=== PATIENT | male | born 1980 ===

== ENCOUNTER 2019-09-28 23:15 | Inpatient (IN) ==
[2019-09-29] MEDS ORDERED: ALBUTEROL 2.5 MG/3 ML NEB RESP TX PRN (01:25)
[2019-09-29] MEDS ORDERED: GLUCAGON 1 MG VIAL IM PRN (01:25)
[2019-09-29] MEDS ORDERED: DEXTROSE 50% 25 GM/50 ML SYRINGE IV PRN (01:25)
[2019-09-29] MEDS ORDERED: ONDANSETRON 4 MG/2 ML VIAL IV PRN (01:25)
[2019-09-29] MEDS ORDERED: OSELTAMIVIR 30 MG CAPSULE PO SCH (02:00)
[2019-09-29 07:01] LABS: Albumin 2.8 G/DL (3.4-5.0); Bilirubin,Total 0.9 MG/DL (0.2-1.0); Calcium 8.4 MG/DL (8.5-10.1); Osmolality,Calculated 279.2 MOS/KG (273-304); Total Protein 7.2 G/DL (6.4-8.3)
[2019-09-29] MEDS: ACETAMINOPHEN 325 MG TABLET PO PRN ×2 (07:11→13:00)
[2019-09-29 07:44] LABS: Basophils # 0.1 10*3/uL (0.0-0.2); Basophils % 1.1 % (0.0-0.8); Hematocrit 31.8 VOL% (42.0-52.0); Immature Granulocytes % 0.4 %; Immature Granulocytes Absolute 0.03 #; Lymphocytes # 0.8 10*3/uL (1.4-4.0); Lymphocytes % 10.7 % (21.2-54.2); Mean Corpuscular HGB Conc 31.4 GM/DL (32-36); Mean Corpuscular Volume 104.6 FL (87-102); Mean Platelet Volume 12.4 FL (9.6-12.0); Monocytes % 15.3 % (1.7-12.7); Neutrophils % 72.5 % (38.7-73.9); Red Blood Count 3.04 MC/CUMM (3.8-5.5); Red Cell Distribution Width 15.3 % (9.3-17.3); White Blood Count 7.1 T/CUMM (4-12)
[2019-09-29 07:45] LABS: Platelet Count 58 T/CUMM (130-400)
[2019-09-29 08:00] LABS: Hypochromasia 1+; Ovalocytes Slight; Platelet Estimate Decreased
[2019-09-29] MEDS: ALBUTEROL/IPRATROPIUM 3 ML NEB RESP TX SCH ×3 (08:07→19:13)
[2019-09-29] MEDS ORDERED: ENOXAPARIN 30 MG/0.3 ML SYRINGE SUBCUT SCH (09:00)
[2019-09-29] MEDS: INSULIN REGULAR 100 UNIT/ML SUBCUT SCH ×4 (09:08→21:14)
[2019-09-29] MEDS: AZITHROMYCIN INJ 500 MG in SODIUM CHLORIDE 0.9% 250 ML IV SCH (09:09)
[2019-09-29] MEDS: cefTRIAXone 1,000 MG in SYRINGE 1 EACH IV SCH (09:09)
[2019-09-29] MEDS: ASPIRIN EC 81 MG TABLET PO SCH (09:09)
[2019-09-29] MEDS: amLODIPine 10 MG TABLET PO SCH (09:10)
[2019-09-29] MEDS: carvediloL 12.5 MG TABLET PO SCH ×2 (09:10→17:34)
[2019-09-29] MEDS: PANTOPRAZOLE 40 MG TABLET PO SCH (09:10)
[2019-09-29] MEDS: SIMVASTATIN 20 MG TABLET PO SCH (21:16)
[2019-09-30] MEDS: ALBUTEROL/IPRATROPIUM 3 ML NEB RESP TX SCH ×4 (00:27→20:44)
[2019-09-30 04:51] LABS: Basophils # 0.1 10*3/uL (0.0-0.2); Basophils % 1.9 % (0.0-0.8); Eosinophils % 0.6 % (0.00-10.9); Hematocrit 31.1 VOL% (42.0-52.0); Hemoglobin 9.8 GM/DL (14.0-18.0); Immature Granulocytes % 0.2 %; Immature Granulocytes Absolute 0.01 #; Lymphocytes % 21.3 % (21.2-54.2); Mean Corpuscular HGB Conc 31.5 GM/DL (32-36); Mean Corpuscular Volume 104.7 FL (87-102); Mean Platelet Volume 11.7 FL (9.6-12.0); Monocytes % 17.5 % (1.7-12.7); Neutrophils % 58.5 % (38.7-73.9); Platelet Count 60 T/CUMM (130-400); Red Blood Count 2.97 MC/CUMM (3.8-5.5); Red Cell Distribution Width 14.8 % (9.3-17.3); White Blood Count 4.6 T/CUMM (4-12)
[2019-09-30 05:15] LABS: Atypical Lymphocytes Few; Eosinophils 3 % (0-10); Hypochromasia 1+; Lymphocytes 24 % (20-55); Segmented Neutrophils 54 % (50-85); Total Cells Counted 100
[2019-09-30 05:16] LABS: Macrocytosis Slight; Platelet Estimate Decreased
[2019-09-30 05:25] LABS: Calcium 8.1 MG/DL (8.5-10.1); Osmolality,Calculated 284.2 MOS/KG (273-304)
[2019-09-30] MEDS: cefTRIAXone 1,000 MG in SYRINGE 1 EACH IV SCH (08:55)
[2019-09-30] MEDS: PANTOPRAZOLE 40 MG TABLET PO SCH (08:55)
[2019-09-30] MEDS: amLODIPine 10 MG TABLET PO SCH (08:55)
[2019-09-30] MEDS: OSELTAMIVIR 30 MG CAPSULE PO SCH (08:56)
[2019-09-30] MEDS: carvediloL 12.5 MG TABLET PO SCH ×2 (08:56→16:06)
[2019-09-30] MEDS: ASPIRIN EC 81 MG TABLET PO SCH (08:56)
[2019-09-30] MEDS: INSULIN REGULAR 100 UNIT/ML SUBCUT SCH ×4 (08:59→21:23)
[2019-09-30] MEDS: SIMVASTATIN 20 MG TABLET PO SCH (20:59)
[2019-10-01] MEDS: ALBUTEROL/IPRATROPIUM 3 ML NEB RESP TX SCH ×2 (01:25→08:03)
[2019-10-01 06:08] LABS: Basophils % 1.1 % (0.0-0.8); Eosinophils # 0.2 10*3/uL (0.0-0.87); Eosinophils % 4.7 % (0.00-10.9); Hematocrit 31.1 VOL% (42.0-52.0); Hemoglobin 9.8 GM/DL (14.0-18.0); Immature Granulocytes % 0.3 %; Immature Granulocytes Absolute 0.01 #; Lymphocytes % 26.6 % (21.2-54.2); Mean Corpuscular HGB Conc 31.5 GM/DL (32-36); Mean Corpuscular Volume 104.4 FL (87-102); Mean Platelet Volume 11.5 FL (9.6-12.0); Monocytes % 13.9 % (1.7-12.7); Neutrophils % 53.4 % (38.7-73.9); Platelet Count 66 T/CUMM (130-400); Red Blood Count 2.98 MC/CUMM (3.8-5.5); Red Cell Distribution Width 14.6 % (9.3-17.3); White Blood Count 3.8 T/CUMM (4-12)
[2019-10-01 06:22] LABS: Calcium 8.1 MG/DL (8.5-10.1); Osmolality,Calculated 287.8 MOS/KG (273-304)
[2019-10-01 06:34] LABS: Eosinophils 3 % (0-10); Hypochromasia 1+; Lymphocytes 32 % (20-55); Macrocytosis Slight; Ovalocytes Slight; Platelet Estimate Decreased; Segmented Neutrophils 53 % (50-85); Total Cells Counted 100
[2019-10-01 06:35] LABS: Atypical Lymphocytes Few
[2019-10-01 07:44] VITALS: BP 146/77
[2019-10-01] MEDS: PANTOPRAZOLE 40 MG TABLET PO SCH (08:38)
[2019-10-01] MEDS: ASPIRIN EC 81 MG TABLET PO SCH (08:38)
[2019-10-01] MEDS: carvediloL 12.5 MG TABLET PO SCH (08:38)
[2019-10-01] MEDS: amLODIPine 10 MG TABLET PO SCH (08:38)
[2019-10-01] MEDS: OSELTAMIVIR 30 MG CAPSULE PO SCH (08:38)
[2019-10-01] MEDS: cefTRIAXone 1,000 MG in SYRINGE 1 EACH IV SCH (08:39)
[2019-10-01] MEDS: INSULIN REGULAR 100 UNIT/ML SUBCUT SCH (08:43)
[2019-10-01] MEDS: AZITHROMYCIN INJ 500 MG in SODIUM CHLORIDE 0.9% 250 ML IV SCH (08:51)
[2019-10-01] MEDS ORDERED: AZITHROMYCIN 250 MG TABLET PO SCH (09:00)
== END 2019-10-01 10:37 | disposition home or self-care (01) | DRG 193 ==
LOC: N.5E 09-29 00:16 → SUATTDRO 09-29 00:16
PROVIDERS: ADMIT Internal Medicine; ATTEND Internal Medicine

== ENCOUNTER 2020-02-19 01:51 | Inpatient (IN) ==
[2020-02-19] MEDS ORDERED: ONDANSETRON 4 MG/2 ML VIAL IV PRN (03:26)
[2020-02-19] MEDS ORDERED: GLUCAGON 1 MG VIAL IM PRN (03:26)
[2020-02-19] MEDS ORDERED: VANCOMYCIN INJ 750 MG in SODIUM CHLORIDE 0.9% 250 ML IV PRN (04:27)
[2020-02-19] MEDS ORDERED: VANCOMYCIN INJ 2,000 MG in SODIUM CHLORIDE 0.9% 500 ML IV ONE (05:00)
[2020-02-19] MEDS: MORPHINE 4 MG/1 ML VIAL IV PRN (05:09)
[2020-02-19 06:40] LABS: Albumin 2.4 G/DL (3.4-5.0); Bilirubin,Total 1.4 MG/DL (0.2-1.0); Calcium 7.7 MG/DL (8.5-10.1); Osmolality,Calculated 276.5 MOS/KG (273-304); Total Protein 6.7 G/DL (6.4-8.3)
[2020-02-19 06:42] LABS: Basophils # 0.1 10*3/uL (0.0-0.2); Basophils % 0.4 % (0.0-0.8); Eosinophils # 0.3 10*3/uL (0.0-0.87); Eosinophils % 1.5 % (0.00-10.9); Hematocrit 33.4 VOL% (42.0-52.0); Immature Granulocytes % 12.7 %; Immature Granulocytes Absolute 2.86 #; Lymphocytes # 0.9 10*3/uL (1.4-4.0); Mean Corpuscular HGB Conc 29.9 GM/DL (32-36); Mean Corpuscular Volume 105.7 FL (87-102); Mean Platelet Volume 13.2 FL (9.6-12.0); Monocytes % 5.5 % (1.7-12.7); Neutrophils % 75.9 % (38.7-73.9); Platelet Count 57 T/CUMM (130-400); Red Blood Count 3.16 MC/CUMM (3.8-5.5); Red Cell Distribution Width 14.7 % (9.3-17.3); White Blood Count 22.5 T/CUMM (4-12)
[2020-02-19 07:19] LABS: Anisocytosis 2+; Band Neutrophils 18 % (0-10); Lymphocytes 6 % (20-55); Metamyelocytes 3 %; Microcytosis 1+; Segmented Neutrophils 68 % (50-85); Total Cells Counted 100
[2020-02-19 07:20] LABS: Hypochromasia 2+; Macrocytosis 1+; Platelet Estimate Decreased; Polychromasia Slight
[2020-02-19] MEDS ORDERED: carvediloL 12.5 MG TABLET PO SCH (08:00)
[2020-02-19] MEDS: INSULIN REGULAR 100 UNIT/ML SUBCUT SCH ×4 (08:49→21:47)
[2020-02-19] MEDS ORDERED: PANTOPRAZOLE 40 MG TABLET PO SCH (09:00)
[2020-02-19] MEDS ORDERED: ENOXAPARIN 30 MG/0.3 ML SYRINGE SUBCUT SCH (09:00)
[2020-02-19] MEDS ORDERED: amLODIPine 10 MG TABLET PO SCH (09:00)
[2020-02-19] MEDS: SIMVASTATIN 20 MG TABLET PO SCH (09:24)
[2020-02-19] MEDS: ASPIRIN EC 81 MG TABLET PO SCH (09:24)
[2020-02-19 11:22] LABS: Hepatitis B Core IgM Quant 0.17 Index; Hepatitis C Virus Ab Quant 0.14 Index; Hepatitis C Virus Ab Result Negative (Negative)
[2020-02-19] MEDS ORDERED: SODIUM BICARBONATE 50 MEQ/50 ML SYRINGE IV ONE (11:51)
[2020-02-19] MEDS ORDERED: EPINEPHrine 1 MG/10 ML SYRINGE ONE (11:51)
[2020-02-19] MEDS ORDERED: EPINEPHrine 1 MG/ML VIAL ONE (11:52)
[2020-02-19 12:23] LABS: ABG Base Excess -11.1 MMOL/L (-2.5-2.5); ABG HCO3 17.5 MMOL/L (20-26); ABG Oxygen Saturation 97.7 % (95-100); ABG PCO2 51.7 MM HG (35-48); ABG PO2 127.1 MM HG (80-95); ABG TCO2 19.1 MMOL/L (23-27)
[2020-02-19 12:27] LABS: ABG PH 7.148 (7.35-7.45)
[2020-02-19] MEDS ORDERED: SODIUM BICARBONATE 50 MEQ/50 ML VIAL IV ONE (12:42)
[2020-02-19] MEDS ORDERED: DOPamine 800 MG/250 ML PREMIX IV ONE (12:56)
[2020-02-19 13:19] LABS: Basophils # 0.1 10*3/uL (0.0-0.2); Basophils % 0.3 % (0.0-0.8); Eosinophils % 0.1 % (0.00-10.9); Hematocrit 32.3 VOL% (42.0-52.0); Hemoglobin 9.5 GM/DL (14.0-18.0); Lymphocytes # 0.8 10*3/uL (1.4-4.0); Lymphocytes % 4.9 % (21.2-54.2); Mean Corpuscular HGB Conc 29.4 GM/DL (32-36); Mean Corpuscular Volume 109.5 FL (87-102); Mean Platelet Volume 13.5 FL (9.6-12.0); Monocytes % 2.9 % (1.7-12.7); Neutrophils % 74.8 % (38.7-73.9); Platelet Count 42 T/CUMM (130-400); Red Blood Count 2.95 MC/CUMM (3.8-5.5); Red Cell Distribution Width 14.8 % (9.3-17.3); White Blood Count 15.3 T/CUMM (4-12)
[2020-02-19 13:23] LABS: Calcium 7.6 MG/DL (8.5-10.1); Osmolality,Calculated 288.7 MOS/KG (273-304)
[2020-02-19] MEDS ORDERED: HEPARIN DRIP 25,000 UNITS/500 ML PREMIX IV SCH (13:30)
[2020-02-19 13:36] LABS: Alanine Aminotransferase 180 U/L (16-61); Albumin 2.1 G/DL (3.4-5.0); Alkaline Phosphatase 165 U/L (45-117); Aspartate Amino Transferase 365 U/L (0-37); Blood Urea Nitrogen 53 MG/DL (7-18); Calcium 7.6 MG/DL (8.5-10.1); Estimated Glom Filtration Rate 8 ML/MIN; Glucose 57 MG/DL (74-106); Osmolality,Calculated 281.1 MOS/KG (273-304); Total Protein 6.1 G/DL (6.4-8.3)
[2020-02-19] MEDS: SODIUM BICARB INJ 150 MEQ in DEXTROSE 5% 850 ML IV SCH ×2 (14:00→22:42)
[2020-02-19] MEDS ORDERED: NOREPINEPHRINE 8 MG in SODIUM CHLORIDE 0.9% 242 ML IV PRN (14:03)
[2020-02-19 14:04] LABS: Band Neutrophils 12 % (0-10); Lymphocytes 5 % (20-55); Macrocytosis 2+; Myelocytes 2 %; Segmented Neutrophils 78 % (50-85); Total Cells Counted 100
[2020-02-19] MEDS ORDERED: DOPamine 800 MG/250 ML PREMIX IV PRN (14:04)
[2020-02-19 14:05] LABS: Anisocytosis 1+; Hypochromasia Slight; Platelet Estimate Decreased
[2020-02-19] MEDS: DEXTROSE 10% 250 ML BAG IV PRN (14:38)
[2020-02-19] MEDS ORDERED: HEPARIN 5,000 UNIT/1 ML VIAL IV ONE (15:21)
[2020-02-19 15:35] LABS: ABG Base Excess 2.6 MMOL/L (-2.5-2.5); ABG HCO3 26.8 MMOL/L (20-26); ABG PH 7.461 (7.35-7.45); ABG TCO2 23.8 MMOL/L (23-27)
[2020-02-19 15:41] LABS: INR 1.4; PT Patient Result 14.8 SECS (9.8-11.9); Partial Thromboplastin Time 43.2 SECS (23.9-33.8)
[2020-02-19 15:46] LABS: CKMB % 1.1 %
[2020-02-19 15:54] LABS: Troponin I 1.14 NG/ML (0.00-0.045)
[2020-02-19 21:45] LABS: CKMB % 1.2 %
[2020-02-19 21:46] LABS: Troponin I 4.59 NG/ML (0.00-0.045)
[2020-02-19 22:40] LABS: INR 1.5
[2020-02-19 22:51] LABS: Hematocrit 29.4 VOL% (42.0-52.0); Hemoglobin 9.3 GM/DL (14.0-18.0)
[2020-02-20 00:06] LABS: Hepatitis B Surface Ag Quant < 0.10 Index; Hepatitis B Surface Ag Result Negative (Negative)
[2020-02-20 03:53] LABS: ABG Base Excess 8.5 MMOL/L (-2.5-2.5); ABG HCO3 30.3 MMOL/L (20-26); ABG PCO2 31.6 MM HG (35-48); ABG PO2 90.5 MM HG (80-95); ABG TCO2 31.3 MMOL/L (23-27)
[2020-02-20 03:57] LABS: Basophils # 0.1 10*3/uL (0.0-0.2); Basophils % 0.3 % (0.0-0.8); Eosinophils # 0.2 10*3/uL (0.0-0.87); Hematocrit 28.8 VOL% (42.0-52.0); Hemoglobin 9.4 GM/DL (14.0-18.0); Immature Granulocytes % 0.6 %; Immature Granulocytes Absolute 0.12 #; Lymphocytes # 0.9 10*3/uL (1.4-4.0); Lymphocytes % 4.9 % (21.2-54.2); Mean Corpuscular HGB Conc 32.6 GM/DL (32-36); Mean Platelet Volume 12.6 FL (9.6-12.0); Monocytes % 4.4 % (1.7-12.7); Neutrophils % 88.8 % (38.7-73.9); Platelet Count 45 T/CUMM (130-400); Red Blood Count 2.94 MC/CUMM (3.8-5.5); Red Cell Distribution Width 14.5 % (9.3-17.3); White Blood Count 19.1 T/CUMM (4-12)
[2020-02-20 04:19] LABS: Blood Urea Nitrogen 64 MG/DL (7-18); Estimated Glom Filtration Rate 7 ML/MIN; Glucose 76 MG/DL (74-106); Osmolality,Calculated 284.2 MOS/KG (273-304)
[2020-02-20 04:31] LABS: Calcium < 5.0 MG/DL (8.5-10.1)
[2020-02-20] MEDS ORDERED: SODIUM CHLORIDE 0.9% 1,000 ML IV SCH (05:30)
[2020-02-20] MEDS ORDERED: CALCIUM GLUCONATE 1,000 MG in SODIUM CHLORIDE 0.9% 100 ML IV ONE ×2 (05:30→12:30)
[2020-02-20 05:45] LABS: Band Neutrophils 1 % (0-10); Lymphocytes 4 % (20-55); Segmented Neutrophils 87 % (50-85); Total Cells Counted 100
[2020-02-20 05:46] LABS: Anisocytosis 1+; Platelet Estimate Decreased
[2020-02-20] MEDS: ACETAMINOPHEN 325 MG TABLET PO PRN ×2 (06:08→12:36)
[2020-02-20 09:19] LABS: ABG Base Excess 9.2 MMOL/L (-2.5-2.5); ABG Oxygen Saturation 99.4 % (95-100); ABG PCO2 34.4 MM HG (35-48); ABG PH 7.573 (7.35-7.45); ABG TCO2 28.7 MMOL/L (23-27)
[2020-02-20] MEDS: SIMVASTATIN 20 MG TABLET PO SCH (09:27)
[2020-02-20] MEDS: PANTOPRAZOLE 40 MG VIAL IV SCH (09:27)
[2020-02-20] MEDS: INSULIN REGULAR 100 UNIT/ML SUBCUT SCH ×4 (09:30→18:58)
[2020-02-20] MEDS: MEROPENEM 500 MG in SODIUM CHLORIDE 0.9% 100 ML IV SCH (11:06)
[2020-02-20] MEDS: ASPIRIN EC 81 MG TABLET PO SCH (11:06)
[2020-02-20] MEDS ORDERED: OXYMETAZOLINE 0.05% NASAL SPRAY 15 ML BOTTLE BOTH NARES PRN (11:39)
[2020-02-20] MEDS: DEXTROSE 10% 250 ML BAG IV PRN (11:50)
[2020-02-20 15:34] LABS: ABG HCO3 31.8 MMOL/L (20-26); ABG Oxygen Saturation 99.5 % (95-100); ABG PCO2 36.5 MM HG (35-48); ABG PH 7.538 (7.35-7.45); ABG TCO2 27.7 MMOL/L (23-27)
[2020-02-21] MEDS: hydrALAZINE 20 MG/1 ML VIAL IV PRN ×3 (02:21→21:30)
[2020-02-21] MEDS: ACETAMINOPHEN 325 MG TABLET PO PRN ×4 (02:41→21:28)
[2020-02-21] MEDS: INSULIN REGULAR 100 UNIT/ML SUBCUT SCH ×5 (02:52→23:38)
[2020-02-21 05:54] LABS: ABG Base Excess 7.3 MMOL/L (-2.5-2.5); ABG HCO3 31.1 MMOL/L (20-26); ABG Oxygen Saturation 98.9 % (95-100); ABG PCO2 30.3 MM HG (35-48); ABG PH 7.587 (7.35-7.45); ABG TCO2 25.5 MMOL/L (23-27); Basophils % 0.2 % (0.0-0.8); Eosinophils % 0.1 % (0.00-10.9); Hematocrit 29.2 VOL% (42.0-52.0); Hemoglobin 9.5 GM/DL (14.0-18.0); Immature Granulocytes % 0.5 %; Immature Granulocytes Absolute 0.09 #; Lymphocytes # 1.1 10*3/uL (1.4-4.0); Lymphocytes % 6.6 % (21.2-54.2); Mean Corpuscular HGB Conc 32.5 GM/DL (32-36); Mean Corpuscular Volume 97.3 FL (87-102); Mean Platelet Volume 12.3 FL (9.6-12.0); Monocytes % 6.2 % (1.7-12.7); NRBC # 0.02 10*3/uL; Neutrophils % 86.4 % (38.7-73.9); Platelet Count 52 T/CUMM (130-400); Red Cell Distribution Width 14.6 % (9.3-17.3); White Blood Count 16.9 T/CUMM (4-12)
[2020-02-21 06:07] LABS: Calcium 7.4 MG/DL (8.5-10.1); Osmolality,Calculated 305.7 MOS/KG (273-304)
[2020-02-21 06:16] LABS: Hypochromasia 1+; Microcytosis Slight; Platelet Estimate Decreased
[2020-02-21] MEDS: ASPIRIN EC 81 MG TABLET PO SCH (09:21)
[2020-02-21] MEDS: MEROPENEM 500 MG in SODIUM CHLORIDE 0.9% 100 ML IV SCH (09:21)
[2020-02-21] MEDS: PANTOPRAZOLE 40 MG VIAL IV SCH (09:21)
[2020-02-21] MEDS: SIMVASTATIN 20 MG TABLET PO SCH (09:21)
[2020-02-21] MEDS ORDERED: VANCOMYCIN INJ 750 MG in SODIUM CHLORIDE 0.9% 250 ML IV ONE (14:00)
[2020-02-21] MEDS: HEPARIN DRIP 25,000 UNITS/500 ML PREMIX IV SCH (14:40)
[2020-02-21] MEDS: DEXAMETHASONE 4 MG/1 ML VIAL IV SCH (14:40)
[2020-02-21 15:02] LABS: ABG Base Excess 7.5 MMOL/L (-2.5-2.5); ABG HCO3 31.3 MMOL/L (20-26); ABG Oxygen Saturation 99.2 % (95-100); ABG PCO2 32.8 MM HG (35-48); ABG PH 7.566 (7.35-7.45)
[2020-02-21] MEDS: MORPHINE 4 MG/1 ML VIAL IV PRN (17:24)
[2020-02-22] MEDS: INSULIN REGULAR 100 UNIT/ML SUBCUT SCH ×3 (06:42→18:33)
[2020-02-22 07:47] LABS: ABG Base Excess 4.4 MMOL/L (-2.5-2.5); ABG HCO3 28.4 MMOL/L (20-26); ABG Oxygen Saturation 99.5 % (95-100); ABG PCO2 41.5 MM HG (35-48); ABG PH 7.449 (7.35-7.45); ABG TCO2 25.8 MMOL/L (23-27)
[2020-02-22 07:49] LABS: Basophils % 0.1 % (0.0-0.8); Hematocrit 32.2 VOL% (42.0-52.0); Hemoglobin 9.9 GM/DL (14.0-18.0); Immature Granulocytes % 0.7 %; Immature Granulocytes Absolute 0.06 #; Lymphocytes # 0.6 10*3/uL (1.4-4.0); Lymphocytes % 7.1 % (21.2-54.2); Mean Corpuscular HGB Conc 30.7 GM/DL (32-36); Mean Corpuscular Volume 100.9 FL (87-102); Monocytes % 7.4 % (1.7-12.7); NRBC # 0.02 10*3/uL; Neutrophils % 84.7 % (38.7-73.9); Red Blood Count 3.19 MC/CUMM (3.8-5.5); White Blood Count 9.1 T/CUMM (4-12)
[2020-02-22 07:52] LABS: Platelet Count 50 T/CUMM (130-400)
[2020-02-22 08:25] LABS: Calcium 8.5 MG/DL (8.5-10.1); Osmolality,Calculated 296.4 MOS/KG (273-304)
[2020-02-22 08:33] LABS: Hypochromasia 1+
[2020-02-22] MEDS: DEXAMETHASONE 4 MG/1 ML VIAL IV SCH (08:33)
[2020-02-22] MEDS: SIMVASTATIN 20 MG TABLET PO SCH (08:33)
[2020-02-22] MEDS: ASPIRIN CHEW 81 MG TABLET PO SCH (08:33)
[2020-02-22 08:34] LABS: Anisocytosis 1+; Ovalocytes Slight
[2020-02-22] MEDS: PANTOPRAZOLE 40 MG VIAL IV SCH (08:34)
[2020-02-22 08:35] LABS: Platelet Estimate Decreased
[2020-02-22] MEDS: INSULIN GLARGINE 100 UNIT/ML SUBCUT SCH (10:45)
[2020-02-22] MEDS: MEROPENEM 500 MG in SODIUM CHLORIDE 0.9% 100 ML IV SCH (13:01)
[2020-02-22] MEDS: HEPARIN DRIP 25,000 UNITS/500 ML PREMIX IV SCH (14:04)
[2020-02-22] MEDS: hydrALAZINE 20 MG/1 ML VIAL IV PRN ×2 (14:20→21:00)
[2020-02-23] MEDS: INSULIN REGULAR 100 UNIT/ML SUBCUT SCH ×5 (01:14→23:56)
[2020-02-23] MEDS ORDERED: HEPARIN 5,000 UNIT/1 ML VIAL IV ONE ×3 (01:45→13:39)
[2020-02-23 05:39] LABS: ABG Base Excess 3.8 MMOL/L (-2.5-2.5); ABG HCO3 27.8 MMOL/L (20-26); ABG Oxygen Saturation 98.9 % (95-100); ABG PCO2 37.9 MM HG (35-48); ABG PH 7.468 (7.35-7.45); ABG TCO2 24.4 MMOL/L (23-27)
[2020-02-23 05:48] LABS: Basophils % 0.2 % (0.0-0.8); Hematocrit 35.2 VOL% (42.0-52.0); Hemoglobin 11.3 GM/DL (14.0-18.0); Immature Granulocytes % 0.9 %; Lymphocytes # 0.8 10*3/uL (1.4-4.0); Lymphocytes % 6.7 % (21.2-54.2); Mean Corpuscular HGB Conc 32.1 GM/DL (32-36); Mean Platelet Volume 13.2 FL (9.6-12.0); NRBC # 0.02 10*3/uL; Neutrophils % 82.2 % (38.7-73.9); Platelet Count 85 T/CUMM (130-400); Red Blood Count 3.63 MC/CUMM (3.8-5.5); Red Cell Distribution Width 14.9 % (9.3-17.3); White Blood Count 11.1 T/CUMM (4-12)
[2020-02-23 06:01] LABS: Calcium 8.7 MG/DL (8.5-10.1); Osmolality,Calculated 309.8 MOS/KG (273-304)
[2020-02-23 06:23] LABS: Hypochromasia Slight; Lymphocytes 7 % (20-55); Nucleated Red Blood Cells 1 (0-5); Platelet Estimate Decreased; Segmented Neutrophils 86 % (50-85); Total Cells Counted 100
[2020-02-23 06:24] LABS: Microcytosis Slight
[2020-02-23] MEDS: ASPIRIN CHEW 81 MG TABLET PO SCH (08:23)
[2020-02-23] MEDS: INSULIN GLARGINE 100 UNIT/ML SUBCUT SCH (08:23)
[2020-02-23] MEDS: SIMVASTATIN 20 MG TABLET PO SCH (08:23)
[2020-02-23] MEDS: DEXAMETHASONE 4 MG/1 ML VIAL IV SCH (08:23)
[2020-02-23] MEDS: PANTOPRAZOLE 40 MG VIAL IV SCH (08:24)
[2020-02-23] MEDS: MEROPENEM 500 MG in SODIUM CHLORIDE 0.9% 100 ML IV SCH (09:25)
[2020-02-23] MEDS: hydrALAZINE 20 MG/1 ML VIAL IV PRN (09:25)
[2020-02-23] MEDS: LEVOFLOXACIN INJ 750 MG in PREMIX 1 EACH IV SCH (11:35)
[2020-02-23] MEDS ORDERED: VANCOMYCIN INJ 500 MG in SODIUM CHLORIDE 0.9% 100 ML IV PRN (13:00)
[2020-02-23] MEDS: HEPARIN DRIP 25,000 UNITS/500 ML PREMIX IV SCH ×2 (13:54→14:00)
[2020-02-23] MEDS ORDERED: NOREPINEPHRINE 4 MG/4 ML VIAL IV ONE (15:26)
[2020-02-23] MEDS: NOREPINEPHRINE 8 MG in SODIUM CHLORIDE 0.9% 242 ML IV PRN (15:39)
[2020-02-23] MEDS ORDERED: VANCOMYCIN INJ 500 MG in SODIUM CHLORIDE 0.9% 100 ML IV ONE (17:00)
[2020-02-23] MEDS ORDERED: HEPARIN 5,000 UNIT/1 ML VIAL IV STA (21:37)
[2020-02-24 05:15] LABS: ABG Base Excess 3.8 MMOL/L (-2.5-2.5); ABG HCO3 27.8 MMOL/L (20-26); ABG Oxygen Saturation 99.8 % (95-100); ABG PCO2 38.2 MM HG (35-48); ABG PH 7.467 (7.35-7.45); ABG TCO2 25.2 MMOL/L (23-27)
[2020-02-24 05:23] LABS: Basophils % 0.2 % (0.0-0.8); Hematocrit 31.4 VOL% (42.0-52.0); Immature Granulocytes % 1.5 %; Immature Granulocytes Absolute 0.13 #; Lymphocytes # 1.1 10*3/uL (1.4-4.0); Lymphocytes % 12.4 % (21.2-54.2); Mean Corpuscular HGB Conc 31.8 GM/DL (32-36); Mean Corpuscular Volume 97.8 FL (87-102); Mean Platelet Volume 12.8 FL (9.6-12.0); Monocytes % 8.9 % (1.7-12.7); NRBC # 0.04 10*3/uL; Platelet Count 111 T/CUMM (130-400); Red Blood Count 3.21 MC/CUMM (3.8-5.5); Red Cell Distribution Width 14.7 % (9.3-17.3); White Blood Count 8.5 T/CUMM (4-12)
[2020-02-24 05:49] LABS: Hypochromasia 1+; Lymphocytes 8 % (20-55); Microcytosis Slight; Ovalocytes Slight; Platelet Estimate Decreased; Segmented Neutrophils 86 % (50-85); Total Cells Counted 100
[2020-02-24 05:56] LABS: Calcium 8.1 MG/DL (8.5-10.1); Osmolality,Calculated 292.2 MOS/KG (273-304)
[2020-02-24] MEDS: INSULIN REGULAR 100 UNIT/ML SUBCUT SCH ×3 (06:01→17:32)
[2020-02-24] MEDS: HEPARIN DRIP 25,000 UNITS/500 ML PREMIX IV SCH ×3 (07:15→23:20)
[2020-02-24] MEDS: INSULIN GLARGINE 100 UNIT/ML SUBCUT SCH ×2 (08:48→09:14)
[2020-02-24] MEDS: SIMVASTATIN 20 MG TABLET PO SCH (08:48)
[2020-02-24] MEDS: ASPIRIN CHEW 81 MG TABLET PO SCH (08:48)
[2020-02-24] MEDS: PANTOPRAZOLE 40 MG VIAL IV SCH (08:49)
[2020-02-24] MEDS: DEXAMETHASONE 4 MG/1 ML VIAL IV SCH (08:49)
[2020-02-24] MEDS: MEROPENEM 500 MG in SODIUM CHLORIDE 0.9% 100 ML IV SCH (11:18)
[2020-02-24] MEDS ORDERED: NOREPINEPHRINE 4 MG/4 ML VIAL IV ONE (16:28)
[2020-02-24] MEDS: NOREPINEPHRINE 8 MG in SODIUM CHLORIDE 0.9% 242 ML IV PRN (16:33)
[2020-02-25] MEDS: INSULIN REGULAR 100 UNIT/ML SUBCUT SCH ×4 (00:18→17:49)
[2020-02-25 05:03] LABS: ABG Base Excess -0.4 MMOL/L (-2.5-2.5); ABG Oxygen Saturation 96.7 % (95-100); ABG PCO2 36.9 MM HG (35-48); ABG PH 7.416 (7.35-7.45); ABG PO2 93.3 MM HG (80-95); ABG TCO2 20.5 MMOL/L (23-27)
[2020-02-25 05:10] LABS: Basophils # 0.1 10*3/uL (0.0-0.2); Basophils % 0.3 % (0.0-0.8); Hematocrit 41.5 VOL% (42.0-52.0); Immature Granulocytes % 2.6 %; Immature Granulocytes Absolute 0.61 #; Lymphocytes # 1.6 10*3/uL (1.4-4.0); Lymphocytes % 6.7 % (21.2-54.2); Mean Corpuscular Volume 97.4 FL (87-102); Mean Platelet Volume 12.4 FL (9.6-12.0); Monocytes % 6.7 % (1.7-12.7); NRBC # 0.07 10*3/uL; Neutrophils % 83.7 % (38.7-73.9); Red Cell Distribution Width 15.3 % (9.3-17.3)
[2020-02-25 05:24] LABS: Hemoglobin 13.3 GM/DL (14.0-18.0); Red Blood Count 4.26 MC/CUMM (3.8-5.5); White Blood Count 23.3 T/CUMM (4-12)
[2020-02-25 05:25] LABS: Platelet Count 253 T/CUMM (130-400)
[2020-02-25 05:49] LABS: Band Neutrophils 1 % (0-10); Lymphocytes 6 % (20-55); Myelocytes 1 %; Segmented Neutrophils 90 % (50-85); Total Cells Counted 100
[2020-02-25 05:50] LABS: Hypochromasia 1+; Microcytosis Slight; Polychromasia Slight
[2020-02-25 05:51] LABS: Platelet Estimate Normal; Target Cells Slight
[2020-02-25] MEDS: PANTOPRAZOLE 40 MG VIAL IV SCH (08:30)
[2020-02-25] MEDS: INSULIN GLARGINE 100 UNIT/ML SUBCUT SCH (08:30)
[2020-02-25] MEDS: ASPIRIN CHEW 81 MG TABLET PO SCH (08:33)
[2020-02-25] MEDS: SIMVASTATIN 20 MG TABLET PO SCH (08:34)
[2020-02-25] MEDS: DEXAMETHASONE 4 MG/1 ML VIAL IV SCH (08:37)
[2020-02-25] MEDS: MEROPENEM 500 MG in SODIUM CHLORIDE 0.9% 100 ML IV SCH (09:38)
[2020-02-25] MEDS: LEVOFLOXACIN INJ 750 MG in PREMIX 1 EACH IV SCH (10:38)
[2020-02-25] MEDS: HEPARIN DRIP 25,000 UNITS/500 ML PREMIX IV SCH ×2 (12:27→14:32)
[2020-02-25] MEDS ORDERED: ALBUMIN 25% 25 GM in PREMIX 1 EACH IV ONE (14:30)
[2020-02-25] MEDS ORDERED: VANCOMYCIN INJ 500 MG in SODIUM CHLORIDE 0.9% 100 ML IV ONE (17:00)
[2020-02-25] MEDS: NOREPINEPHRINE 8 MG in SODIUM CHLORIDE 0.9% 242 ML IV PRN (17:18)
[2020-02-26] MEDS: INSULIN REGULAR 100 UNIT/ML SUBCUT SCH ×4 (00:45→18:21)
[2020-02-26] MEDS: HEPARIN DRIP 25,000 UNITS/500 ML PREMIX IV SCH ×3 (04:39→20:14)
[2020-02-26 05:05] LABS: ABG Base Excess 1.5 MMOL/L (-2.5-2.5); ABG HCO3 25.8 MMOL/L (20-26); ABG Oxygen Saturation 96.9 % (95-100); ABG PCO2 36.7 MM HG (35-48); ABG PH 7.448 (7.35-7.45); ABG PO2 90.3 MM HG (80-95); ABG TCO2 22.8 MMOL/L (23-27)
[2020-02-26 05:07] LABS: Basophils # 0.1 10*3/uL (0.0-0.2); Basophils % 0.2 % (0.0-0.8); Eosinophils # 0.1 10*3/uL (0.0-0.87); Eosinophils % 0.6 % (0.00-10.9); Hematocrit 33.3 VOL% (42.0-52.0); Hemoglobin 10.7 GM/DL (14.0-18.0); Immature Granulocytes % 3.9 %; Immature Granulocytes Absolute 0.87 #; Lymphocytes # 1.6 10*3/uL (1.4-4.0); Mean Corpuscular HGB Conc 32.1 GM/DL (32-36); Mean Corpuscular Volume 97.1 FL (87-102); Monocytes % 5.9 % (1.7-12.7); NRBC # 0.02 10*3/uL; Neutrophils % 82.4 % (38.7-73.9); Platelet Count 207 T/CUMM (130-400); Red Blood Count 3.43 MC/CUMM (3.8-5.5); Red Cell Distribution Width 15.8 % (9.3-17.3); White Blood Count 22.5 T/CUMM (4-12)
[2020-02-26 06:21] LABS: Hypochromasia 3+; Lymphocytes 11 % (20-55); Ovalocytes 2+; Platelet Estimate Normal; Segmented Neutrophils 83 % (50-85); Total Cells Counted 100
[2020-02-26 06:30] LABS: Calcium 7.9 MG/DL (8.5-10.1)
[2020-02-26] MEDS: SIMVASTATIN 20 MG TABLET PO SCH (08:23)
[2020-02-26] MEDS: INSULIN GLARGINE 100 UNIT/ML SUBCUT SCH (08:23)
[2020-02-26] MEDS: ASPIRIN CHEW 81 MG TABLET PO SCH (08:23)
[2020-02-26] MEDS: DEXAMETHASONE 4 MG/1 ML VIAL IV SCH (08:24)
[2020-02-26] MEDS: PANTOPRAZOLE 40 MG VIAL IV SCH (08:25)
[2020-02-26] MEDS: MEROPENEM 500 MG in SODIUM CHLORIDE 0.9% 100 ML IV SCH (11:21)
[2020-02-26] MEDS ORDERED: SODIUM POLYSTYRENE SULFATE 15 GM/60 ML BOTTLE PO SCH (12:00)
[2020-02-26] MEDS ORDERED: SODIUM POLYSTYRENE SULFATE 15 GM/60 ML BOTTLE PO ONE (12:30)
[2020-02-26] MEDS: hydrALAZINE 20 MG/1 ML VIAL IV PRN (12:53)
[2020-02-27] MEDS: INSULIN REGULAR 100 UNIT/ML SUBCUT SCH ×4 (00:32→18:21)
[2020-02-27 04:08] LABS: ABG Base Excess -0.9 MMOL/L (-2.5-2.5); ABG Oxygen Saturation 96.8 % (95-100); ABG PCO2 35.5 MM HG (35-48); ABG PH 7.429 (7.35-7.45); ABG PO2 98.4 MM HG (80-95); ABG TCO2 24.1 MMOL/L (23-27)
[2020-02-27 04:22] LABS: Basophils # 0.1 10*3/uL (0.0-0.2); Basophils % 0.2 % (0.0-0.8); Eosinophils # 0.1 10*3/uL (0.0-0.87); Eosinophils % 0.3 % (0.00-10.9); Hematocrit 33.1 VOL% (42.0-52.0); Hemoglobin 10.7 GM/DL (14.0-18.0); Immature Granulocytes % 3.7 %; Immature Granulocytes Absolute 0.79 #; Lymphocytes % 4.7 % (21.2-54.2); Mean Corpuscular HGB Conc 32.3 GM/DL (32-36); Mean Corpuscular Volume 96.8 FL (87-102); Mean Platelet Volume 12.1 FL (9.6-12.0); Monocytes % 4.7 % (1.7-12.7); Neutrophils % 86.4 % (38.7-73.9); Platelet Count 238 T/CUMM (130-400); Red Blood Count 3.42 MC/CUMM (3.8-5.5); Red Cell Distribution Width 15.9 % (9.3-17.3); White Blood Count 21.6 T/CUMM (4-12)
[2020-02-27 04:50] LABS: Calcium 7.8 MG/DL (8.5-10.1); Osmolality,Calculated 316.1 MOS/KG (273-304)
[2020-02-27 04:57] LABS: Hypochromasia 1+; Lymphocytes 3 % (20-55); Ovalocytes Slight; Platelet Estimate Adequate; Segmented Neutrophils 97 % (50-85); Total Cells Counted 100
[2020-02-27 04:58] LABS: Microcytosis Slight
[2020-02-27] MEDS ORDERED: SODIUM POLYSTYRENE SULFATE 15 GM/60 ML BOTTLE PO ONE (08:00)
[2020-02-27] MEDS: INSULIN GLARGINE 100 UNIT/ML SUBCUT SCH (08:22)
[2020-02-27] MEDS: PANTOPRAZOLE 40 MG VIAL IV SCH (08:22)
[2020-02-27] MEDS: ASPIRIN CHEW 81 MG TABLET PO SCH (08:23)
[2020-02-27] MEDS: SIMVASTATIN 20 MG TABLET PO SCH (08:23)
[2020-02-27] MEDS: DEXAMETHASONE 4 MG/1 ML VIAL IV SCH (08:26)
[2020-02-27] MEDS ORDERED: SODIUM POLYSTYRENE SULFATE 15 GM/60 ML BOTTLE PO SCH (08:30)
[2020-02-27] MEDS: MEROPENEM 500 MG in SODIUM CHLORIDE 0.9% 100 ML IV SCH (09:25)
[2020-02-27] MEDS: LEVOFLOXACIN INJ 750 MG in PREMIX 1 EACH IV SCH (11:06)
[2020-02-27] MEDS: HEPARIN DRIP 25,000 UNITS/500 ML PREMIX IV SCH ×2 (14:04→20:24)
[2020-02-27] MEDS: SODIUM POLYSTYRENE SULFATE 15 GM/60 ML BOTTLE PO PRN ×2 (16:26→21:00)
[2020-02-28] MEDS: INSULIN REGULAR 100 UNIT/ML SUBCUT SCH ×4 (00:24→19:51)
[2020-02-28 03:44] LABS: ABG Base Excess -2.6 MMOL/L (-2.5-2.5); ABG HCO3 22.2 MMOL/L (20-26); ABG Oxygen Saturation 97.5 % (95-100); ABG PCO2 41.2 MM HG (35-48); ABG PH 7.352 (7.35-7.45); ABG TCO2 20.7 MMOL/L (23-27)
[2020-02-28 04:29] LABS: Basophils # 0.1 10*3/uL (0.0-0.2); Basophils % 0.3 % (0.0-0.8); Eosinophils # 0.2 10*3/uL (0.0-0.87); Eosinophils % 0.7 % (0.00-10.9); Hematocrit 33.6 VOL% (42.0-52.0); Hemoglobin 10.2 GM/DL (14.0-18.0); Immature Granulocytes % 3.5 %; Immature Granulocytes Absolute 0.78 #; Lymphocytes # 0.9 10*3/uL (1.4-4.0); Lymphocytes % 4.2 % (21.2-54.2); Mean Corpuscular HGB Conc 30.4 GM/DL (32-36); Mean Corpuscular Volume 100.6 FL (87-102); Mean Platelet Volume 11.9 FL (9.6-12.0); Neutrophils % 85.3 % (38.7-73.9); Platelet Count 255 T/CUMM (130-400); Red Blood Count 3.34 MC/CUMM (3.8-5.5); Red Cell Distribution Width 16.4 % (9.3-17.3); White Blood Count 22.5 T/CUMM (4-12)
[2020-02-28 04:47] LABS: Calcium 7.4 MG/DL (8.5-10.1); Prealbumin 19.2 MG/DL (20-40)
[2020-02-28 05:01] LABS: Band Neutrophils 1 % (0-10); Lymphocytes 3 % (20-55); Myelocytes 1 %; Segmented Neutrophils 91 % (50-85); Total Cells Counted 100
[2020-02-28 05:02] LABS: Hypochromasia 1+
[2020-02-28 05:03] LABS: Anisocytosis 1+; Platelet Estimate Normal; Target Cells Slight
[2020-02-28] MEDS: SODIUM POLYSTYRENE SULFATE 15 GM/60 ML BOTTLE PO PRN (06:14)
[2020-02-28] MEDS: SIMVASTATIN 20 MG TABLET PO SCH (08:03)
[2020-02-28] MEDS: ASPIRIN CHEW 81 MG TABLET PO SCH (08:03)
[2020-02-28] MEDS: INSULIN GLARGINE 100 UNIT/ML SUBCUT SCH (08:03)
[2020-02-28] MEDS: PANTOPRAZOLE 40 MG VIAL IV SCH (08:03)
[2020-02-28] MEDS: DEXAMETHASONE 4 MG/1 ML VIAL IV SCH (08:04)
[2020-02-28] MEDS: HEPARIN DRIP 25,000 UNITS/500 ML PREMIX IV SCH (14:05)
[2020-02-28] MEDS ORDERED: VANCOMYCIN INJ 500 MG in SODIUM CHLORIDE 0.9% 100 ML IV ONE (17:00)
[2020-02-29 00:27] VITALS: BP 25/16
== END 2020-02-28 20:10 | disposition expired | DRG 870 ==
LOC: N.3E 03:10 → SUATTDRO 03:10 → N.2E 09:50 → N.ICU 11:30 → N.CC 02-21 18:52
PROVIDERS: ADMIT Internal Medicine; ATTEND Family Medicine